=== PATIENT | female | born 1990 | race Caucasian/White ===

== ENCOUNTER 2016-11-05 06:26 | Inpatient (IN) | payer BC ==
[2016-11-05] MEDS ORDERED: LIDOCAINE 1% (PF) 10 MG/ML (30 ML SDV) SQ PRN (06:48)
[2016-11-05] MEDS ORDERED: CARBOPROST TROMETHAMINE 250 MCG/ML 1 ML AMP IM PRN (06:48)
[2016-11-05] MEDS ORDERED: METHYLERGONOVINE 0.2 MG/ML 1 ML AMP IM PRN (06:48)
[2016-11-05] MEDS ORDERED: TERBUTALINE 1 MG/ML VIAL SQ PRN (06:48)
[2016-11-05] MEDS ORDERED: OXYTOCIN 10 UNIT/ML 1 ML VIAL IM PRN (06:48)
[2016-11-05] MEDS ORDERED: OXYTOCIN 20 UNITS/1000 ML NS 1,000 ML IV SCH (07:00)
[2016-11-05] MEDS: LACTATED RINGERS 1,000 ML IV SCH ×3 (07:13→11:51)
[2016-11-05 07:25] LABS: Basophils % (A) 0 %; CH 31.5; CHCM 34.5; Eosinophils # (A) 0.2 k/uL (0-0.7); Eosinophils % (A) 1 %; HCT 41.6 % (34.0-46.0); HDW 2.35; HGB 13.9 gm/dL (11.4-16.0); Luc # (Auto) 0.19; Luc % (Auto) 2; Lymphocytes # (A) 1.8 k/uL (1.0-4.8); Lymphocytes % (A) 15 %; MCH 30.7 pg (25.0-35.0); MCHC 33.4 g/dL (31.0-37.0); MCV 91.8 fL (80.0-100.0); Mean Platelet Volume 9.1; Monocytes # (A) 0.6 k/uL (0-1.0); Monocytes % (A) 5 %; Neutrophils # (A) 9.6 k/uL (1.3-7.7); Neutrophils % (A) 78 %; RBC 4.53 m/uL (3.80-5.40); RDW 14.1 % (11.5-15.5); WBC 12.3 k/uL (3.8-10.6); WBC (Perox) 11.97
[2016-11-05 07:34] LABS: INR 0.9 (<1.2); Prothrombin Time 9.4 sec (9.0-12.0)
[2016-11-05 07:52] VITALS: BMI 28.4
[2016-11-05] MEDS ORDERED: BUTORPHANOL 1 MG/ML 1 ML VIAL IV PRN (08:34)
--- NOTE | 2016-11-05 08:39 | P.HPOB ---
History of Present Illness H&P Date: 11/05/16 Chief Complaint: 40-6/7 weeks, induction The patient is a 25-year-old 1 para 0 admitted at 40-6/7 weeks as established by last Mester. And confirmed by 8 week ultrasound. She is admitted for induction of labor with all signs reassuring. Her is, located by history of deep venous thrombosis while using control pills. As a result, she was referred to maternal medicine who placed her on Lovenox prophylaxis throughout the . The initial plan to change her to unfractionated heparin was rescinded in favor of remaining on Lovenox up and until delivery as the have lives are not so dissimilar. Given the fact that she is scheduled for induction, her last dose of Lovenox was more than 24 hours ago. She is also known to be rubella nonimmune. Group B strep status is negative. Obstetrical history: 1 para 0 with current statistics listed above. EDC of 10/31/2016 was established by last menstrual period and confirmed by an 8 week ultrasound. Laboratory workup demonstrates a blood type of A+ with a negative antibody screen. Rubella status is nonimmune. The remainder of the laboratory workup was within normal limits. One hour Glucola was normal and group B strep status is negative. Gynecologic history: Unremarkable with no history of any infections to include STDs. Review of Systems Review of systems is confined to history of present illness. Past Medical History Past Medical History: Deep Vein Thrombosis (DVT) Additional Past Medical History / Comment(s): age 19 History of Any Multi-Drug Resistant Organisms: None Reported Past Surgical History: No Surgical Hx Reported Past Anesthesia/Blood Transfusion Reactions: No Reported Reaction Past Psychological History: No Psychological Hx Reported Smoking Status: Never smoker - Past Family History Mother Family Medical History: No Reported History Medications and Allergies Home Medications Medication Instructions Recorded Confirmed Type Enoxaparin [Lovenox] 40 mg SQ DAILY 11/05/16 11/05/16 History Pedi Multivit No.25/Folic Acid 2 tab PO DAILY 11/05/16 11/05/16 History [Flintstones Multivit Chew Tab] Allergies Allergy/AdvReac Type Severity Reaction Status Date / Time No Known Allergies Allergy Verified 11/05/16 06:47 Exam - Vital Signs Vital signs: Vital Signs Temp Pulse Resp BP 11/05/16 06:46 97.0 F L 96 18 127/84 Intake and Output 11/04/16 11/05/16 11/05/16 22:59 06:59 14:59 Other: Weight 89.811 kg In general, this is a well-developed, well-nourished white female in no acute distress. Her heart has a regular rhythm and rate without murmur. Her lungs are clear to auscultation bilaterally in all melvin. Her abdomen is gravid, nondistended, has normal active bowel sounds, is soft, nontender, and without any palpable masses aside from uterine fundus. Her extremities are without any cyanosis, clubbing, or significant edema and are nontender to palpation bilaterally. Digital cervical examination demonstrates her cervix to be 3 cm dilated, approximate 70% effaced, with the vertex in presentation at -1 station. Artificial rupture of membranes is carried out demonstrating clear fluid. Results Result Diagrams: 11/05/16 07:00 Abnormal Lab Results - Last 24 Hours (Table) 11/05/16 Range/Units 07:00 WBC 12.3 H (3.8-10.6) k/uL Neutrophils # 9.6 H (1.3-7.7) k/uL Assessment and Plan (1) History of DVT (deep vein thrombosis) Status: Acute (2) Post-dates Status: Acute Plan: The patient has been admitted for Pitocin induction which has been started. She is undergone artificial rupture of membranes. She additionally has had coagulation studies checked and advance of a possible epidural for which she is a good candidate. She is also good candidate for IV pain medication. She will continue to have close maternal and surveillance and expectant management will be practiced. Following delivery, she will be restarted on Lovenox 40 mg subcutaneously for 6 weeks' .
[2016-11-05] MEDS ORDERED: SODIUM CHLORIDE 0.9% 100 ML BAG ONE (11:28)
[2016-11-05] MEDS ORDERED: BUPIVACAINE (PF) 0.25% 30 ML VIAL ONE (11:28)
[2016-11-05] MEDS ORDERED: fentaNYL (PF) 50 MCG/ML 5 ML AMP ONE (11:28)
[2016-11-05] MEDS ORDERED: Acetaminophen-Codeine 300-30mg TAB PO PRN (19:14)
[2016-11-05] MEDS ORDERED: LANOLIN CREAM 5 GM TUBE TOPICAL PRN (19:14)
[2016-11-05] MEDS ORDERED: SIMETHICONE 80 MG CHEWABLE PO PRN (19:14)
[2016-11-05] MEDS ORDERED: BENZOCAINE/MENTHOL SPRAY 1 GM/SPRAY AEROSOL TOPICAL PRN (19:14)
[2016-11-05] MEDS ORDERED: diphenhydrAMINE 50 MG CAP PO PRN (19:14)
[2016-11-05] MEDS ORDERED: diphenhydrAMINE 25 MG CAP PO PRN (19:14)
[2016-11-05] MEDS ORDERED: HYDROCORTISONE 2.5% RECTAL CREAM 30 GM TUBE RECTAL PRN (19:14)
[2016-11-05] MEDS ORDERED: ZOLPIDEM 5 MG TAB PO PRN (19:14)
[2016-11-05] MEDS ORDERED: WITCH HAZEL 1 EACH MED..PAD TOPICAL PRN (19:14)
[2016-11-05] MEDS ORDERED: ACETAMINOPHEN TAB 325 MG TAB PO PRN (19:14)
[2016-11-05] MEDS ORDERED: diphenhydrAMINE 50 MG/ML 1 ML VIAL IVP PRN ×2 (19:14)
[2016-11-05 19:18] VITALS: RESP 16
--- NOTE | 2016-11-05 19:20 | P.PROBDLV ---
Vaginal Delivery Note - . Vaginal Delivery Note: The patient is a 25-year-old 1 para 0 admitted at 40-6/7 weeks by good dating parameters. She is admitted for induction of labor with all signs reassuring. Her has been uncomplicated though she does carry a history of a previous DVT while taking a control pill. Maternal medicine consultation was sought and they recommended she be placed on Lovenox 40 mg subcutaneously daily throughout the . The initial plan to change to unfractionated heparin at 36 weeks was abandoned as the half-life of Lovenox is not significantly longer than unfractionated heparin. As result, her last dose of Lovenox was on Saturday night. She was admitted this morning where she had Pitocin augmentation started. She underwent artificial rupture of membranes demonstrating clear fluid. She had an epidural catheter placed for analgesia at the onset of the active phase of labor. She initially made fairly slow progress through the active phase and then progressed quickly to complete. She pushed over the course of approximately 1 hour and 45 minutes to a normal spontaneous vaginal delivery of a viable 8 lbs. 8 oz. baby girl with Apgars of 8 at 1 minute and 9 at 5 minutes delivered in the direct occiput anterior position. The placenta was delivered spontaneously, intact, and grossly normal with a grossly normal, centrally inserted three-vessel cord. A second-degree midline episiotomy had been cut for delivery and was noted to extended but not to the degree of a third-degree. The laceration was repaired with a single [id number] stitch across the anterior capsule of the external anal sphincter to reinforce it followed by a standard repair of episiotomy or laceration with 3-0 chromic catgut without difficulty. Estimated blood loss for the case was approximately 350 mL. There were no complications. All sponge, instrument, and needle counts were correct. Both mother and are resting comfortably in recovery. She will resume Lovenox 40 mg approximate 6-12 hours after delivery to be continued for 6 weeks' .
[2016-11-05] MEDS: SENNOSIDES-DOCUSATE SODIUM 1 EACH TAB PO SCH (20:14)
[2016-11-05] MEDS: IBUPROFEN 600 MG TAB PO PRN (21:54)
[2016-11-06] MEDS ORDERED: ENOXAPARIN 40 MG/0.4 ML SYRINGE SQ SCH (06:00)
--- NOTE | 2016-11-06 08:06 | P.DS ---
Providers Date of admission: 11/05/16 06:26 Expected date of discharge: 11/06/16 Attending physician: Dean Del Rio Primary care physician: Stated None - Discharge Diagnosis(es) (1) History of DVT (deep vein thrombosis) Current Visit: Yes Status: Acute (2) Post-dates Current Visit: Yes Status: Acute (3) Normal spontaneous vaginal delivery Current Visit: Yes Status: Acute Hospital Course: The patient is a 25-year-old 1 para 0 admitted at 40-6/7 weeks by good dating parameters. She is admitted for postdates induction of labor with all signs reassuring. Her has been complicated by a history of a deep venous thrombosis which occurred while using control pills a number of years ago. She was referred to maternal medicine who recommended Lovenox therapy for the to be continued up to the time of delivery. She stopped her Lovenox approximately 24-36 hours before the onset of her induction. She is also rubella nonimmune. On labor and delivery, she had Pitocin started and underwent artificial rupture of membranes for clear fluid. She had an epidural catheter placed and then made progress initially slowly through the active phase of labor but then quickly to complete. She pushed over the course of approximately 1 hour and 45 minutes to a normal spontaneous vaginal delivery of a viable 8 lbs. 8 oz. baby girl with Apgars of 8 at 1 minute and 9 at 5 minutes. There was a second-degree midline episiotomy cut which was extended to a larger second-degree laceration. It was repaired without difficulty. Her course was unremarkable with vital signs remaining stable and her temperature was afebrile throughout. She was deemed stable for discharge by day #1 was discharged home to follow-up in the office in 6 weeks' time routinely. Discharge instructions included calling for any significantly increased bleeding or foul-smelling lochia, significantly increased fever or abdominal pain, perineal complaints, breast complaints, or anything else that concerned her. She was additionally instructed to resume her Lovenox 40 mg subcutaneously for the next 6 weeks time. She was otherwise to abstain from anything in the vagina to include intercourse for the next 6 weeks as well. She understood all of her instructions and agrees to follow up as noted above. Discharge medications included continued vitamins as she has opted to breast-feed. She additionally was to continue Lovenox 40 mg subcutaneously on a daily basis as noted above. She was also provided with a prescription for Tylenol 3, 1-2 by mouth every 6 hours when necessary pain, #30 dispensed with no refills. She was otherwise to continue vitamins as she has opted to breast-feed. Paternal blood type is A+ and rubella status is nonimmune. She therefore was to receive the MMR vaccination prior to discharge. Procedures: #1. Pitocin induction #2. Artificial rupture of membranes #3. Epidural analgesia #4. Normal spontaneous vaginal delivery #5. Repair of perineal laceration Patient Condition at Discharge: Good Plan - Discharge Summary New Discharge Prescriptions: New Acetaminophen-Codeine 300-30mg [Tylenol #3] 2 tab PO Q6H PRN #30 tablet PRN Reason: Pain No Action Pedi Multivit No.25/Folic Acid [Flintstones Multivit Chew Tab] 2 tab PO DAILY Enoxaparin [Lovenox] 40 mg SQ DAILY Discharge Medication List Enoxaparin [Lovenox] 40 mg SQ DAILY 11/05/16 [History] Pedi Multivit No.25/Folic Acid [Flintstones Multivit Chew Tab] 2 tab PO DAILY [History] Acetaminophen-Codeine 300-30mg [Tylenol #3] 2 tab PO Q6H PRN #30 tablet [Rx] Follow up Appointment(s)/Referral(s): Dean Del Rio MD [STAFF PHYSICIAN] - 6 Weeks Discharge Disposition: HOME SELF-CARE
[2016-11-06] MEDS ORDERED: MEASLES-MUMPS-RUBELLA VACC/PF 12,500 UNIT/0.5 ML VIAL SQ ONE (08:07)
[2016-11-06] MEDS: SENNOSIDES-DOCUSATE SODIUM 1 EACH TAB PO SCH ×2 (08:09→20:10)
[2016-11-06] MEDS: Acetaminophen-Codeine 300-30mg TAB PO PRN ×2 (08:10→15:45)
[2016-11-06] MEDS: IBUPROFEN 600 MG TAB PO PRN ×2 (11:46→19:10)
[2016-11-06 17:32] VITALS: BP 115/59; PULSE 76; TEMP 97.9
== END 2016-11-06 20:00 | disposition home or self-care (01) | DRG 775 ==
LOC: 4FBP 06:26
PROVIDERS: ADMIT Obstetrics & Gynecology; ATTEND Obstetrics & Gynecology
PROC: 10907ZC Drainage of Amniotic Fluid, Therapeutic from Products of Conception, Via Natural or Artificial Opening (ICD-10-PCS; principal; 2016-11-05)
PROC: 0DQR0ZZ Repair Anal Sphincter, Open Approach (ICD-10-PCS; principal; 2016-11-05)
PROC: 00HU33Z Insertion of Infusion Device into Spinal Canal, Percutaneous Approach (ICD-10-PCS; principal; 2016-11-05)
PROC: 0W8NXZZ Division of Female Perineum, External Approach (ICD-10-PCS; principal; 2016-11-05)
PROC: 10E0XZZ Delivery of Products of Conception, External Approach (ICD-10-PCS; principal; 2016-11-05)
PROC: 3E033VJ Introduction of Other Hormone into Peripheral Vein, Percutaneous Approach (ICD-10-PCS; principal; 2016-11-05)
PROC: 0KQM0ZZ Repair Perineum Muscle, Open Approach (ICD-10-PCS; principal; 2016-11-05)
PROC: 3E0R3CZ (ICD-10-PCS; principal; 2016-11-05)
DX: O48.0 Post-term pregnancy (principal); O70.20 Third degree perineal laceration during delivery, unspecified; Z86.718 Personal history of other venous thrombosis and embolism; Z37.0 Single live birth; Z3A.40 40 weeks gestation of pregnancy; Z79.01 Long term (current) use of anticoagulants
CPT/HCPCS: 85025; 85610; 85730; 88307; 90707

== ENCOUNTER 2019-01-29 09:08 | Emergency (ER) | payer BC, OTHER ==
[2019-01-29 09:16] VITALS: BP 137/74; TEMP 98.2
[2019-01-29] MEDS ORDERED: LORazepam 1 MG TAB PO STA (09:42)
[2019-01-29 10:03] VITALS: PULSE 89; RESP 16
--- NOTE | 2019-01-29 10:32 | ED ---
Anxiety HPI - General Chief Complaint: Anxiety Stated Complaint: Anxiety Time Seen by Provider: 01/29/19 09:25 Source: patient, RN notes reviewed Mode of arrival: ambulatory - History of Present Illness Initial Comments: 28-year-old female with a past medical history of DVT Zentz for anxiety. Patient states when sister has a psychiatric disorder and stopped taking her mood stabilizer. Patient states that her sister became "crazy" and had to be admitted to the psychiatric unit. States this is causing her anxiety. States she feels like she is having a panic attack. States she was not able to sleep last night because of the anxiety. States she is here today so she can be set up with an outpatient psychiatrist. Denies any suicidal thoughts or thoughts of harming himself or anyone else.Patient has no other complaints at this time including shortness of breath, chest pain, abdominal pain, nausea or vomiting, headache, or visual changes. MD Complaint: anxiety, heart racing Onset/Timin -: days(s) - Related Data Home Medications: Home Medications Medication Instructions Recorded Confirmed Pedi Multivit No.25/Folic Acid 600 mcg PO DAILY 11/05/16 01/29/19 [Flintstones Multivit Chew Tab] Ferrous Sulfate [Feosol] 325 mg PO DAILY 01/29/19 01/29/19 Allergies/Adverse Reactions: Allergies Allergy/AdvReac Type Severity Reaction Status Date / Time No Known Allergies Allergy Verified 01/29/19 09:20 Review of Systems ROS Statement: Those systems with pertinent positive or pertinent negative responses have been documented in the HPI. ROS Other: All systems not noted in ROS Statement are negative. Past Medical History Past Medical History: Deep Vein Thrombosis (DVT) Additional Past Medical History / Comment(s): age 19 History of Any Multi-Drug Resistant Organisms: None Reported Past Surgical History: No Surgical Hx Reported Past Anesthesia/Blood Transfusion Reactions: No Reported Reaction Past Psychological History: No Psychological Hx Reported Smoking Status: Never smoker Past Alcohol Use History: Occasional Past Drug Use History: None Reported - Past Family History Mother Family Medical History: No Reported History General Exam Limitations: no limitations General appearance: alert, in no apparent distress Head exam: Present: atraumatic, normocephalic, normal inspection Eye exam: Present: normal appearance, PERRL, EOMI. Absent: scleral icterus, conjunctival injection, periorbital swelling ENT exam: Present: normal exam, mucous membranes moist Neck exam: Present: normal inspection, full ROM. Absent: tenderness, meningismus, lymphadenopathy Respiratory exam: Present: normal lung sounds bilaterally. Absent: respiratory distress, wheezes, rales, rhonchi, stridor Cardiovascular Exam: Present: regular rate, normal rhythm, normal heart sounds. Absent: systolic murmur, diastolic murmur, rubs, gallop, clicks GI/Abdominal exam: Present: soft, normal bowel sounds. Absent: distended, tenderness, guarding, rebound, rigid Neurological exam: Present: alert, oriented X3, CN II-XII intact Psychiatric exam: Present: normal affect, normal mood Course Vital Signs 01/29/19 01/29/19 09:13 10:02 Temperature 98.2 F Pulse Rate 105 H 89 Respiratory 20 16 Rate Blood Pressure 137/74 O2 Sat by Pulse 99 99 Oximetry Medical Decision Making - Medical Decision Making Patient presents for anxiety. Patient is anxious to get her sister was admitted to the psychiatric unit. Patient states she has had this before. Patient is here for outpatient referral list. Denies any suicidal thoughts. Patient was given Ativan and is significantly better. She will get a ride home. Patient was given referral list for psychiatrists and counseling. She was also given mobile crisis number. She will follow up outpatient. If she has worsening symptoms she will return here to the emergency department. - Lab Data Lab Results 01/29/19 Range/Units 09:53 Urine HCG, Qual Not Detected (Not Detectd) Disposition Clinical Impression: Acute anxiety Disposition: HOME SELF-CARE Condition: Good Instructions (If sedation given, give patient instructions): Generalized Anxiety Disorder (ED) Additional Instructions: Please follow up with referrals given to you for anxiety. If you have any worsening symptoms and return to the emergency department. Is patient prescribed a controlled substance at d/c from ED?: No Referrals: Luh Kyle MD [REFERRING] - 1-2 days Time of Disposition: 10:31
== END 2019-01-29 10:33 | disposition home or self-care (01) ==
LOC: EC 09:08
DX: F41.9 Anxiety disorder, unspecified (principal); Z86.718 Personal history of other venous thrombosis and embolism
CPT/HCPCS: 81025; 99283

== ENCOUNTER 2019-02-10 23:56 | Emergency (ER) | payer BC, OTHER ==
[2019-02-11 01:01] LABS: Basophils % (A) 1 %; Eosinophils # (A) 0.1 k/uL (0-0.7); Eosinophils % (A) 1 %; HCT 39.5 % (34.0-46.0); HGB 13.5 gm/dL (11.4-16.0); Lymphocytes # (A) 1.9 k/uL (1.0-4.8); Lymphocytes % (A) 22 %; MCH 30.2 pg (25.0-35.0); MCHC 34.1 g/dL (31.0-37.0); MCV 88.8 fL (80.0-100.0); Mean Platelet Volume 6.2; Monocytes # (A) 0.4 k/uL (0-1.0); Monocytes % (A) 5 %; Neutrophils % (A) 69 %; Platelet Count 263 k/uL (150-450); RBC 4.45 m/uL (3.80-5.40); RDW 12.7 % (11.5-15.5); WBC 8.6 k/uL (3.8-10.6)
--- NOTE | 2019-02-11 01:02 | XR ---
EXAMINATION TYPE: XR chest 2V DATE OF EXAM: 02/11/2019 COMPARISON: NONE HISTORY: Chest pain TECHNIQUE: Frontal and lateral views of the chest are obtained. FINDINGS: Heart and mediastinum are normal. Lungs are clear. Diaphragm is normal. Bony thorax appear s normal. IMPRESSION: Normal chest.
[2019-02-11 01:11] LABS: Partial Thromboplastin Time 23.8 sec (22.0-30.0); Prothrombin Time 10.7 sec (9.0-12.0)
[2019-02-11 01:13] LABS: ALT 23 U/L (9-52); AST 20 U/L (14-36); African American GFR (CKD) >90 (>60 ml/min/1.73 sqM); Albumin 4.5 g/dL (3.5-5.0); Alkaline Phosphatase 45 U/L (38-126); Anion Gap 7 mmol/L; Blood Urea Nitrogen 19 mg/dL (7-17); Calcium 9.5 mg/dL (8.4-10.2); Carbon Dioxide 25 mmol/L (22-30); Chloride 105 mmol/L (98-107); Glucose 101 mg/dL (74-99); Magnesium 1.9 mg/dL (1.6-2.3); Sodium 137 mmol/L (137-145); Total Bilirubin 0.5 mg/dL (0.2-1.3); Total Protein 7.3 g/dL (6.3-8.2)
--- NOTE | 2019-02-11 01:25 | ED ---
Arrhythmia/Palpitations HPI - General Chief Complaint: Arrhythmia/Palpitations Stated Complaint: chest pain Time Seen by Provider: 02/11/19 00:14 Source: patient Mode of arrival: ambulatory Limitations: no limitations - History of Present Illness Initial Comments: Patient is a 28-year-old female with no significant past medical history spinning to the emergency room with a chief complaint of chest pain and palpitations. Patient reports over the last several days her heart rate has been around 100 bpm at rest and over 190 bpm with light exercise. Patient reports over same. She developed intermittent chest pain that feels like an "a brick on her chest". Patient denies any episodes diaphoresis nausea or vomiting. Patient does report occasional lightheadedness but denies any dizziness or blurry vision. During the periods of palpitations Patient reports some shortness of breath but no cough. - Related Data Home Medications Medication Instructions Recorded Confirmed Pedi Multivit No.25/Folic Acid 600 mcg PO DAILY 11/05/16 01/29/19 [Flintstones Multivit Chew Tab] Ferrous Sulfate [Feosol] 325 mg PO DAILY 01/29/19 01/29/19 Allergies Allergy/AdvReac Type Severity Reaction Status Date / Time No Known Allergies Allergy Verified 02/11/19 00:03 Review of Systems ROS Statement: Those systems with pertinent positive or pertinent negative responses have been documented in the HPI. ROS Other: All systems not noted in ROS Statement are negative. Past Medical History Past Medical History: Deep Vein Thrombosis (DVT) Additional Past Medical History / Comment(s): age 19 History of Any Multi-Drug Resistant Organisms: None Reported Past Surgical History: No Surgical Hx Reported Past Anesthesia/Blood Transfusion Reactions: No Reported Reaction Past Psychological History: Anxiety Smoking Status: Never smoker Past Alcohol Use History: Occasional Past Drug Use History: None Reported - Past Family History Mother Family Medical History: No Reported History General Exam Limitations: no limitations General appearance: alert, in no apparent distress Head exam: Present: atraumatic, normocephalic, normal inspection Eye exam: Present: normal appearance, PERRL, EOMI Pupils: Present: normal accommodation ENT exam: Present: normal exam, normal oropharynx, mucous membranes moist, TM's normal bilaterally, normal external ear exam Neck exam: Present: normal inspection, full ROM Respiratory exam: Present: normal lung sounds bilaterally Cardiovascular Exam: Present: regular rate, normal rhythm, normal heart sounds Extremities exam: Present: normal inspection, full ROM Back exam: Present: normal inspection, full ROM Neurological exam: Present: alert, oriented X3 Psychiatric exam: Present: normal affect, normal mood Skin exam: Present: warm, intact, normal color Course Vital Signs 02/11/19 02/11/19 00:01 02:47 Temperature 97.9 F 98.3 F Pulse Rate 75 85 Respiratory 20 17 Rate Blood Pressure 145/96 135/90 O2 Sat by Pulse 99 98 Oximetry EKG Findings - EKG Comments: EKG Findings:: Normal sinus rhythm. Ventricular rate 77, MO interval 150, QRS duration 86, QT/QTC 382/432 Medical Decision Making - Medical Decision Making Patient is a 28-year-old female with no significant past medical history is presenting to emergency Department with chief complaint of palpitations and chest pain. Considering the patient still has chest heaviness cardiac workup was initiated. Patient has no palpitations at this time. EKG shows normal sinus rhythm with no ST changes. Chest x-ray is unremarkable. Initial troponins are negative. Rest of labs are unremarkable. I advised the patient to remain in the ED until repeat troponins are obtained. Patient states that she wants to go home and would like to be evaluated by doctor of veterinary medicine as an outpatient. Patient states that she will sign out AMA. Patient given recommendations for a doctor of veterinary medicine. Strict return parameters were thoroughly discussed with patient was understanding and agreeable. Case discussed with physician. - Lab Data Result diagrams: 02/11/19 00:51 02/11/19 00:51 Lab Results 02/11/19 02/11/19 02/11/19 Range/Units 00:51 00:51 00:51 WBC 8.6 (3.8-10.6) k/uL RBC 4.45 (3.80-5.40) m/uL Hgb 13.5 (11.4-16.0) gm/dL Hct 39.5 (34.0-46.0) % MCV 88.8 (80.0-100.0) fL MCH 30.2 (25.0-35.0) pg MCHC 34.1 (31.0-37.0) g/dL RDW 12.7 (11.5-15.5) % Plt Count 263 (150-450) k/uL Neutrophils % 69 % Lymphocytes % 22 % Monocytes % 5 % Eosinophils % 1 % Basophils % 1 % Neutrophils # 6.0 (1.3-7.7) k/uL Lymphocytes # 1.9 (1.0-4.8) k/uL Monocytes # 0.4 (0-1.0) k/uL Eosinophils # 0.1 (0-0.7) k/uL Basophils # 0.0 (0-0.2) k/uL PT 10.7 (9.0-12.0) sec INR 1.0 (<1.2) APTT 23.8 (22.0-30.0) sec Sodium 137 (137-145) mmol/L Potassium 4.0 (3.5-5.1) mmol/L Chloride 105 (98-107) mmol/L Carbon Dioxide 25 (22-30) mmol/L Anion Gap 7 mmol/L BUN 19 H (7-17) mg/dL Creatinine 0.63 (0.52-1.04) mg/dL Est GFR (CKD-EPI)AfAm >90 (>60 ml/min/1.73 sqM) Est GFR (CKD-EPI)NonAf >90 (>60 ml/min/1.73 sqM) Glucose 101 H (74-99) mg/dL Calcium 9.5 (8.4-10.2) mg/dL Magnesium 1.9 (1.6-2.3) mg/dL Total Bilirubin 0.5 (0.2-1.3) mg/dL AST 20 (14-36) U/L ALT 23 (9-52) U/L Alkaline Phosphatase 45 (38-126) U/L Troponin I (0.000-0.034) ng/mL Total Protein 7.3 (6.3-8.2) g/dL Albumin 4.5 (3.5-5.0) g/dL 02/11/19 Range/Units 00:51 WBC (3.8-10.6) k/uL RBC (3.80-5.40) m/uL Hgb (11.4-16.0) gm/dL Hct (34.0-46.0) % MCV (80.0-100.0) fL MCH (25.0-35.0) pg MCHC (31.0-37.0) g/dL RDW (11.5-15.5) % Plt Count (150-450) k/uL Neutrophils % % Lymphocytes % % Monocytes % % Eosinophils % % Basophils % % Neutrophils # (1.3-7.7) k/uL Lymphocytes # (1.0-4.8) k/uL Monocytes # (0-1.0) k/uL Eosinophils # (0-0.7) k/uL Basophils # (0-0.2) k/uL PT (9.0-12.0) sec INR (<1.2) APTT (22.0-30.0) sec Sodium (137-145) mmol/L Potassium (3.5-5.1) mmol/L Chloride (98-107) mmol/L Carbon Dioxide (22-30) mmol/L Anion Gap mmol/L BUN (7-17) mg/dL Creatinine (0.52-1.04) mg/dL Est GFR (CKD-EPI)AfAm (>60 ml/min/1.73 sqM) Est GFR (CKD-EPI)NonAf (>60 ml/min/1.73 sqM) Glucose (74-99) mg/dL Calcium (8.4-10.2) mg/dL Magnesium (1.6-2.3) mg/dL Total Bilirubin (0.2-1.3) mg/dL AST (14-36) U/L ALT (9-52) U/L Alkaline Phosphatase (38-126) U/L Troponin I <0.012 (0.000-0.034) ng/mL Total Protein (6.3-8.2) g/dL Albumin (3.5-5.0) g/dL Disposition Clinical Impression: Palpitations, Chest pain Disposition: Left Against Medical Advice Condition: Stable Instructions (If sedation given, give patient instructions): Heart Palpitations (ED) Additional Instructions: Please follow up with a doctor of veterinary medicine. Please return to emergency department symptoms worsen. Is patient prescribed a controlled substance at d/c from ED?: No Referrals: None,Stated [Primary Care Provider] - 1-2 days Rodger Medina MD [STAFF PHYSICIAN] - 1-2 days Time of Disposition: 02:41
[2019-02-11 02:48] VITALS: BP 135/90; PULSE 85; RESP 17; TEMP 98.3
== END 2019-02-11 02:51 | disposition left against medical advice (07) ==
LOC: EC 23:56
DX: R00.2 Palpitations (principal); R07.89 Other chest pain; R42 Dizziness and giddiness; R06.02 Shortness of breath; Z53.20 Procedure and treatment not carried out because of patient's decision for unspecified reasons
CPT/HCPCS: 36415; 71046; 80053; 83735; 84484; 85025; 85610; 85730; 93005; 99285

== ENCOUNTER 2022-04-05 08:50 | Emergency (ER) | payer BC, OTHER ==
[2022-04-05 08:54] VITALS: RESP 18
[2022-04-05] MEDS ORDERED: SODIUM CHLORIDE 0.9% 1,000 ML IV STA (09:04)
[2022-04-05 09:26] LABS: Basophils % (A) 1 %; Eosinophils # (A) 0.1 k/uL (0-0.7); Eosinophils % (A) 1 %; HCT 40.1 % (34.0-46.0); HGB 13.2 gm/dL (11.4-16.0); Lymphocytes # (A) 1.8 k/uL (1.0-4.8); Lymphocytes % (A) 37 %; MCH 28.5 pg (25.0-35.0); MCV 86.5 fL (80.0-100.0); Mean Platelet Volume 8.2; Monocytes # (A) 0.2 k/uL (0-1.0); Monocytes % (A) 5 %; Neutrophils # (A) 2.7 k/uL (1.3-7.7); Neutrophils % (A) 54 %; Platelet Count 202 k/uL (150-450); RBC 4.64 m/uL (3.80-5.40); RDW 13.5 % (11.5-15.5)
[2022-04-05 09:39] LABS: INR 0.9 (<1.2); Partial Thromboplastin Time 23.2 sec (22.0-30.0); Prothrombin Time 9.7 sec (9.0-12.0)
[2022-04-05 09:47] LABS: ALT 18 U/L (4-34); AST 22 U/L (14-36); African American GFR (CKD) >90 (>60 ml/min/1.73 sqM); Albumin 4.2 g/dL (3.5-5.0); Alkaline Phosphatase 49 U/L (38-126); Anion Gap 7 mmol/L; Blood Urea Nitrogen 13 mg/dL (7-17); Calcium 8.8 mg/dL (8.4-10.2); Carbon Dioxide 28 mmol/L (22-30); Chloride 104 mmol/L (98-107); Glucose 98 mg/dL (74-99); Non-African American GFR(CKD) >90 (>60 ml/min/1.73 sqM); Potassium 3.9 mmol/L (3.5-5.1); Sodium 139 mmol/L (137-145); Total Bilirubin 0.4 mg/dL (0.2-1.3); Total Protein 7.3 g/dL (6.3-8.2)
--- NOTE | 2022-04-05 11:11 | CT ---
EXAMINATION TYPE: CT chest angio for PE CT DLP: 318.9 mGycm, Automated exposure control for dose reduction was used. DATE OF EXAM: 04/05/2022 10:46 AM COMPARISON: Chest radiograph from same day. CLINICAL INDICATION:Female, 31 years old with history of Hemoptysis, shortness of breath; Hemoptysis and shortness of breath. TECHNIQUE/CONTRAST: CTA scan of the thorax is performed with IV Contrast, patient injected with 71ml mL of Isovue 370, pu lmonary embolism protocol. MIP images are created and reviewed. FINDINGS: Pulmonary Artery: There is no evidence for a central filling defect within the pulmonary vasculature to suggest acute pulmonary embolism. Limited evaluation of the segmental and subsegmental branches se condary to bolus timing. The pulmonary artery is of normal size. Lungs/Pleura: No evidence of focal consolidation, pleural effusion or pneumothorax. Airway: Large airways are patent. Heart: Heart is within normal limits for size.. Vasculature: No evidence of aortic aneurysm. Mediastinum: No gross evidence of adenopathy. Musculoskeletal: No acute osseous abnormalities Soft Tissues: Unremarkable. Lower neck: No significant findings. Upper Abdomen: No significant findings. IMPRESSION: No evidence of central pulmonary embolism. Limited evaluation of the segmental and subsegmental branc hes.
--- NOTE | 2022-04-05 11:20 | ED ---
URI HPI - General Chief Complaint: Upper Respiratory Infection Stated Complaint: coughing up blood Time Seen by Provider: 04/05/22 08:57 Source: patient, RN notes reviewed Mode of arrival: ambulatory Limitations: no limitations - History of Present Illness Initial Comments: 31-year-old female presents emergency Department chief complaint of COVID-19, coughing up blood. Patient states that she took at home test which was positive for COVID-19 6 days ago. States she started feeling better states she was coughing hard and noticed some blood in her sputum. Patient denies any pleuritic pain states that she felt slightly short of breath that has resolved. No leg pain or leg swelling. Patient does have a history DVT in which she was on control at that time. She has not had any issues her percent. Patient denies recent fever last 2 days, earlier pain no sore throat no other associated complaints - Related Data Home Medications Medication Instructions Recorded Confirmed No Known Home Medications 04/05/22 04/05/22 Allergies Allergy/AdvReac Type Severity Reaction Status Date / Time No Known Allergies Allergy Verified 04/05/22 09:23 Review of Systems ROS Statement: Those systems with pertinent positive or pertinent negative responses have been documented in the HPI. ROS Other: All systems not noted in ROS Statement are negative. Past Medical History Past Medical History: Deep Vein Thrombosis (DVT) Additional Past Medical History / Comment(s): age 19 History of Any Multi-Drug Resistant Organisms: None Reported Past Surgical History: No Surgical Hx Reported Past Anesthesia/Blood Transfusion Reactions: No Reported Reaction Past Psychological History: Anxiety Smoking Status: Never smoker Past Drug Use History: None Reported - Past Family History Mother Family Medical History: No Reported History General Exam Limitations: no limitations General appearance: alert, in no apparent distress Head exam: Present: atraumatic, normocephalic, normal inspection Eye exam: Present: normal appearance, PERRL, EOMI. Absent: scleral icterus, conjunctival injection, periorbital swelling ENT exam: Present: normal exam, normal oropharynx, mucous membranes moist Neck exam: Present: normal inspection, full ROM. Absent: tenderness, meningismus, lymphadenopathy Respiratory exam: Present: normal lung sounds bilaterally. Absent: respiratory distress, wheezes, rales, rhonchi, stridor Cardiovascular Exam: Present: normal rhythm, tachycardia, normal heart sounds. Absent: systolic murmur, diastolic murmur, rubs, gallop, clicks GI/Abdominal exam: Present: soft, normal bowel sounds. Absent: distended, tenderness, guarding, rebound, rigid Course Vital Signs 04/05/22 08:50 Temperature 98 F Pulse Rate 117 H Respiratory 18 Rate Blood Pressure 149/86 O2 Sat by Pulse 100 Oximetry Medical Decision Making - Medical Decision Making 31-year-old presented for cough, sore hemoptysis. Patient did full set of labs revealed mildly elevated d-dimer CTA was obtained of the chest interpreted by me and radiology there is no evidence of pulmonary embolism. Patient did have risk factors including prior DVT, recent COVID-19, tachycardia. Patient feels improved after IV fluids patient discharged in stable condition return parameters discussed. - Lab Data Result diagrams: 04/05/22 09:17 04/05/22 09:17 Lab Results 04/05/22 04/05/22 04/05/22 Range/Units 09:17 09:17 09:17 WBC 5.0 (3.8-10.6) k/uL RBC 4.64 (3.80-5.40) m/uL Hgb 13.2 (11.4-16.0) gm/dL Hct 40.1 (34.0-46.0) % MCV 86.5 (80.0-100.0) fL MCH 28.5 (25.0-35.0) pg MCHC 33.0 (31.0-37.0) g/dL RDW 13.5 (11.5-15.5) % Plt Count 202 (150-450) k/uL MPV 8.2 Neutrophils % 54 % Lymphocytes % 37 % Monocytes % 5 % Eosinophils % 1 % Basophils % 1 % Neutrophils # 2.7 (1.3-7.7) k/uL Lymphocytes # 1.8 (1.0-4.8) k/uL Monocytes # 0.2 (0-1.0) k/uL Eosinophils # 0.1 (0-0.7) k/uL Basophils # 0.0 (0-0.2) k/uL PT 9.7 (9.0-12.0) sec INR 0.9 (<1.2) APTT 23.2 (22.0-30.0) sec D-Dimer 0.64 H (<0.60) mg/L FEU Sodium 139 (137-145) mmol/L Potassium 3.9 (3.5-5.1) mmol/L Chloride 104 (98-107) mmol/L Carbon Dioxide 28 (22-30) mmol/L Anion Gap 7 mmol/L BUN 13 (7-17) mg/dL Creatinine 0.64 (0.52-1.04) mg/dL Est GFR (CKD-EPI)AfAm >90 (>60 ml/min/1.73 sqM) Est GFR (CKD-EPI)NonAf >90 (>60 ml/min/1.73 sqM) Glucose 98 (74-99) mg/dL Calcium 8.8 (8.4-10.2) mg/dL Total Bilirubin 0.4 (0.2-1.3) mg/dL AST 22 (14-36) U/L ALT 18 (4-34) U/L Alkaline Phosphatase 49 (38-126) U/L Total Protein 7.3 (6.3-8.2) g/dL Albumin 4.2 (3.5-5.0) g/dL HCG, Qual 04/05/22 Range/Units 09:17 WBC (3.8-10.6) k/uL RBC (3.80-5.40) m/uL Hgb (11.4-16.0) gm/dL Hct (34.0-46.0) % MCV (80.0-100.0) fL MCH (25.0-35.0) pg MCHC (31.0-37.0) g/dL RDW (11.5-15.5) % Plt Count (150-450) k/uL MPV Neutrophils % % Lymphocytes % % Monocytes % % Eosinophils % % Basophils % % Neutrophils # (1.3-7.7) k/uL Lymphocytes # (1.0-4.8) k/uL Monocytes # (0-1.0) k/uL Eosinophils # (0-0.7) k/uL Basophils # (0-0.2) k/uL PT (9.0-12.0) sec INR (<1.2) APTT (22.0-30.0) sec D-Dimer (<0.60) mg/L FEU Sodium (137-145) mmol/L Potassium (3.5-5.1) mmol/L Chloride (98-107) mmol/L Carbon Dioxide (22-30) mmol/L Anion Gap mmol/L BUN (7-17) mg/dL Creatinine (0.52-1.04) mg/dL Est GFR (CKD-EPI)AfAm (>60 ml/min/1.73 sqM) Est GFR (CKD-EPI)NonAf (>60 ml/min/1.73 sqM) Glucose (74-99) mg/dL Calcium (8.4-10.2) mg/dL Total Bilirubin (0.2-1.3) mg/dL AST (14-36) U/L ALT (4-34) U/L Alkaline Phosphatase (38-126) U/L Total Protein (6.3-8.2) g/dL Albumin (3.5-5.0) g/dL HCG, Qual Not Detected Disposition Clinical Impression: COVID-19 Disposition: HOME SELF-CARE Condition: Stable Instructions (If sedation given, give patient instructions): COVID-19 (Coronavirus Disease 2019) (ED) Additional Instructions: Please return to the Emergency Department if symptoms worsen or any other concerns. Is patient prescribed a controlled substance at d/c from ED?: No Referrals: None,Stated [Primary Care Provider] - 1-2 days Time of Disposition: 11:19
[2022-04-05 11:35] VITALS: BP 140/92; PULSE 88; TEMP 98
== END 2022-04-05 11:34 | disposition home or self-care (01) ==
LOC: EC 08:50
DX: U07.1 COVID-19 (principal); F41.9 Anxiety disorder, unspecified
CPT/HCPCS: 36415; 85379; 80053; 85025; 85610; 85730; 84703; 71275; 99284; 96360; Q9967

== ENCOUNTER → 2022-05-01 | Outpatient (CLI) | payer BC, OTHER ==
[2022-05-01 09:41] LABS: Partial Thromboplastin Time 23.3 sec (22.0-30.0); Prothrombin Time 10.1 sec (9.0-12.0)
[2022-05-01 14:45] LABS: HCT 40.9 % (37.2-46.3); MCHC 31.8 g/dL (32.0-37.0); Mean Platelet Volume 11.1 fL (9.5-12.2); NRBC Per 100 WBC 0 /100 WBCS (0.0-0.0); Platelet Count 224 X 10*3/uL (140-440); RBC 4.65 X 10*6/uL (4.10-5.20); RDW 14.5 % (11.5-14.5)
[2022-05-01 16:25] LABS: African American GFR (CKD) 112.3 (60.0-200.0); Albumin 4.9 g/dL (3.8-4.9); Albumin/Globulin Ratio 1.81 (1.60-3.17); Anion Gap 9.9 mmol/L (10.00-18.00); BUN/Creat Ratio 17.88 Ratio (12.00-20.00); Blood Urea Nitrogen 14.3 mg/dL (9.0-27.0); Calcium 9.5 mg/dL (8.7-10.3); Carbon Dioxide 25.1 mmol/L (20.0-27.5); Globulin 2.7 g/dL (1.6-3.3); Non-African American GFR(CKD) 96.9 (60.0-200.0); Potassium 4.5 mmol/L (3.5-5.5); Total Bilirubin 0.6 mg/dL (0.30-1.20); Total Protein 7.6 g/dL (6.2-8.2)
[2022-05-01 18:33] LABS: Cardiolipin Ab IgM Interp NEGATIVE (NEGATIVE); Cardiolipin IgA Antibody <2.0 U/mL; Cardiolipin IgM Antibody <1.5 U/mL
[2022-05-01 21:26] LABS: Cardiolipin Ab IgG Interp NEGATIVE (NEGATIVE)
[2022-05-02 10:09] LABS: APTT 39 Sec(s) (<43); Dilute Russell Viper Venom 38 Sec(s) (<44)
== END | disposition home or self-care (01) ==
LOC: LABWHC1 08:17
PROVIDERS: ATTEND Physician Assistant Medical
DX: Z00.00 Encounter for general adult medical examination without abnormal findings (principal); R53.83 Other fatigue
CPT/HCPCS: 36415; 80053; 82607; 82746; 85027; 85300; 85303; 85306; 85610; 85613; 85730; 86147

== ENCOUNTER 2024-10-11 19:04 | Emergency (ER) | payer BC, OTHER ==
--- NOTE | 2024-10-11 19:58 | ED ---
Abdominal Pain HPI - General Chief Complaint: Abdominal Pain Stated Complaint: Abd pain Time Seen by Provider: 10/11/24 19:54 Source: patient, RN notes reviewed Mode of arrival: ambulatory Limitations: no limitations - History of Present Illness Initial Comments: 37-year-old female presenting for abdominal pain x 2 days. Reports a constant mild lower abdominal pain over the past couple of days. States prior to arrival she was using a slip and slide with her children. States after she was got off the slip and slide she had worsening of abdominal pain. No change in bowel habits. Last bowel movement was this morning and was normal. No urinary s ymptoms, fever, nausea, vomiting. States she is currently on her menstrual period - Related Data Home Medications Medication Instructions Recorded Confirmed No Known Home Medications 04/05/22 04/05/22 Allergies Allergy/AdvReac Type Severity Reaction Status Date / Time No Known Allergies Allergy Verified 10/11/24 19:11 Review of Systems ROS Statement: Those systems with pertinent positive or pertinent negative responses have been documented in the HPI. ROS Other: All systems not noted in ROS Statement are negative. Past Medical History Past Medical History: Deep Vein Thrombosis (DVT) Additional Past Medical History / Comment(s): age 19 History of Any Multi-Drug Resistant Organisms: None Reported Past Surgical History: No Surgical Hx Reported Past Anesthesia/Blood Transfusion Reactions: No Reported Reaction Past Psychological History: No Psychological Hx Reported Smoking Status: Never smoker Past Alcohol Use History: None Reported Past Drug Use History: None Reported - Past Family History Mother Family Medical History: No Reported History General Exam Limitations: no limitations General appearance: alert, in no apparent distress Head exam: Present: atraumatic, normocephalic, normal inspection Eye exam: Present: normal appearance, PERRL, EOMI. Absent: scleral icterus, conjunctival injection, periorbital swelling GI/Abdominal exam: Present: soft, normal bowel sounds. Absent: distended, tenderness, guarding, rebound, rigid Back exam: Absent: CVA tenderness (R), CVA tenderness (L) Neurological exam: Present: alert, oriented X3 Psychiatric exam: Present: normal affect, normal mood Skin exam: Present: warm, dry, intact, normal color. Absent: rash Course Vital Signs 10/11/24 19:07 Temperature 98.6 F Pulse Rate 79 Respiratory 18 Rate Blood Pressure 125/69 O2 Sat by Pulse 99 Oximetry Medical Decision Making - Medical Decision Making Was pt. sent in by a medical professional or institution (, PEG, LICENSED CLINICAL PSYCHOLOGIST, urgent care, hospital, or correction...) When possible be specific @ -No Did you speak to anyone other than the patient for history (EMS, parent, family, police, friend...)? What history was obtained from this source @ -No Did you review nursing and triage notes (agree or disagree)? Why? @ -I reviewed and agree with nursing and triage notes Were old charts reviewed (outside hosp., previous admission, EMS record, old EKG, old radiological studies, urgent care reports/EKG's, correction records)? Report findings @ -No old charts were reviewed Differential Diagnosis (chest pain, altered mental status, abdominal pain women, abdominal pain men, vaginal bleeding, weakness, fever, dyspnea, syncope, headache, dizziness, GI bleed, back pain, seizure, CVA, palpatations, mental health, musculoskeletal)? @ -Differential Abdominal Pain Women: Appendicitis, Cholecystitis, diverticulosis, ischemic bowel, pancreatitis, hepatitis, UTI, gastroenteritis, AAA, incarcerated hernia, bowel obstruction, constipation, inflammatory bowel, hepatitis, peptic ulcer disease, splenic infarction, perforated viscus, vulvitis, ovarian torsion, PID, kidney stone, placenta abruption, this is not meant to be an all-inclusive list EKG interpreted by me (3pts min.). @ -None X-rays interpreted by me (1pt min.). @ -None done CT interpreted by me (1pt min.). @ -None done U/S interpreted by me (1pt. min.). @ -None done What testing was considered but not performed or refused? (CT, X-rays, U/S, labs)? Why? @ -None What meds were considered but not given or refused? Why? @ -None Did you discuss the management of the patient with other professionals (professionals i.e. PEG Lynn, LICENSED CLINICAL PSYCHOLOGIST, lab, RT, psych nurse, social media content specialist, civil service worker, teacher, loan review officer, telephonic case manager)? Give summary @ -No Was smoking cessation discussed for >3mins.? @ -No Was critical care preformed (if so, how long)? @ -No Were there social determinants of health that impacted care today? How? (Homelessness, low income, unemployed, alcoholism, drug addiction, transportation, low edu. Level, literacy, decrease access to med. care, group home, rehab)? @ -No Was there de-escalation of care discussed even if they declined (Discuss DNR or withdrawal of care, Hospice)? DNR status @ -No What co-morbidities impacted this encounter? (DM, HTN, Smoking, COPD, CAD, Cancer, CVA, ARF, Chemo, Hep., AIDS, mental health diagnosis, sleep apnea, morbid obesity)? @ -None Was patient admitted / discharged? Hospital course, mention meds given and route, prescriptions, significant lab abnormalities, going to OR and other pertinent info. @ -Discharge. 33-year-old female presenting for abdominal pain x 2 days that worsened after she used a slip and slide prior to arrival. Abdomen soft nonsurgical. Provided with IV fluids and Toradol. Lab work unremarkable. Urinalysis hemorrhagic as patient is on her menstrual cycle. Upon reevaluation, patient reports significant improvement of symptoms. Patient can be safely discharged home with strict return precautions and follow-up care. Case was discussed with my ED attending Dr. Hinojosa Undiagnosed new problem with uncertain prognosis? @ -No Drug Therapy requiring intensive monitoring for toxicity (Heparin, Nitro, Insulin, Cardizem)? @ -No Were any procedures done? @ -No Diagnosis/symptom? @ -Abdominal pain Acute, or Chronic, or Acute on Chronic? @ -Acute Uncomplicated (without systemic symptoms) or Complicated (systemic symptoms)? @ -Default Side effects of treatment? @ -No Exacerbation, Progression, or Severe Exacerbation? @ -No Poses a threat to life or bodily function? How? (Chest pain, [place], [place], pneumonia, PE, COPD, DKA, ARF, appy, cholecystitis, CVA, Diverticulitis, Homicidal, Suicidal, threat to staff... and all critical care pts) @ -Not at this time - Lab Data Result diagrams: 10/11/24 20:10 10/11/24 20:10 Lab Results 10/11/24 10/11/24 10/11/24 Range/Units 20:10 20:10 20:10 WBC 8.43 (4.50-10.00) 10*3/uL RBC 4.19 (4.10-5.20) 10*6/uL Hgb 12.1 (12.0-15.0) g/dL Hct 36.4 L (37.2-46.3) % MCV 86.9 (80.0-97.0) fL MCH 28.9 (27.0-32.0) pg MCHC 33.2 (32.0-37.0) g/dL Plt Count 245 (140-440) 10*3/uL MPV 9.6 (9.5-12.2) fL Immature Gran % (Auto) 0.4 % Neutrophils % 73.4 % Lymphocytes % 19.0 % Monocytes % 6.2 % Eosinophils % 0.6 % Basophils % 0.4 % Immature Gran # 0.03 (0.00-0.04) 10*3/uL Neutrophils # 6.20 (1.80-7.70) 10*3/uL Lymphocytes # 1.60 (0.90-5.00) 10*3/uL Monocytes # 0.52 (0.20-1.00) 10*3/uL Eosinophils # 0.05 (0.04-0.35) 10*3/uL Basophils # 0.03 (0.00-0.10) 10*3/uL Sodium 139 (137-145) mmol/L Potassium 4.4 (3.5-5.1) mmol/L Chloride 104 (98-107) mmol/L Carbon Dioxide 27 (22-30) mmol/L Anion Gap 8 mmol/L BUN 20 H (7-17) mg/dL Creatinine 0.71 (0.52-1.04) mg/dL Est GFR (CKD-EPI)AfAm >90 (>60 ml/min/1.73 sqM) Est GFR (CKD-EPI)NonAf >90 (>60 ml/min/1.73 sqM) Glucose 99 (74-99) mg/dL Plasma Lactic Acid [place] 0.9 (0.7-2.0) mmol/L Calcium 9.5 (8.4-10.2) mg/dL Total Bilirubin 0.6 (0.2-1.3) mg/dL AST 29 (14-36) U/L ALT 13 (4-34) U/L Alkaline Phosphatase 52 (38-126) U/L Total Protein 7.3 (6.3-8.2) g/dL Albumin 4.6 (3.5-5.0) g/dL Lipase 66 (23-300) U/L Urine Color Urine Appearance (Clear) Urine pH (5.0-8.0) Ur Specific [place] (1.001-1.035) Urine Protein (Negative) Urine Glucose (UA) (Negative) Urine Ketones (Negative) Urine Blood (Negative) Urine Nitrite (Negative) Urine Bilirubin (Negative) Urine Urobilinogen (<2.0) mg/dL Ur Leukocyte Esterase (Negative) Urine RBC (0-5) /hpf Urine WBC (0-5) /hpf Ur Squamous Epith Cells (0-4) /hpf Urine Bacteria (None) /hpf Cellular Casts (0) /lpf Hyaline Casts (0-2) /lpf Urine Mucus (None) /hpf Urine HCG, Qual (Not Detectd) 10/11/24 10/11/24 Range/Units 20:12 20:12 WBC (4.50-10.00) 10*3/uL RBC (4.10-5.20) 10*6/uL Hgb (12.0-15.0) g/dL Hct (37.2-46.3) % MCV (80.0-97.0) fL MCH (27.0-32.0) pg MCHC (32.0-37.0) g/dL Plt Count (140-440) 10*3/uL MPV (9.5-12.2) fL Immature Gran % (Auto) % Neutrophils % % Lymphocytes % % Monocytes % % Eosinophils % % Basophils % % Immature Gran # (0.00-0.04) 10*3/uL Neutrophils # (1.80-7.70) 10*3/uL Lymphocytes # (0.90-5.00) 10*3/uL Monocytes # (0.20-1.00) 10*3/uL Eosinophils # (0.04-0.35) 10*3/uL Basophils # (0.00-0.10) 10*3/uL Sodium (137-145) mmol/L Potassium (3.5-5.1) mmol/L Chloride (98-107) mmol/L Carbon Dioxide (22-30) mmol/L Anion Gap mmol/L BUN (7-17) mg/dL Creatinine (0.52-1.04) mg/dL Est GFR (CKD-EPI)AfAm (>60 ml/min/1.73 sqM) Est GFR (CKD-EPI)NonAf (>60 ml/min/1.73 sqM) Glucose (74-99) mg/dL Plasma Lactic Acid [place] (0.7-2.0) mmol/L Calcium (8.4-10.2) mg/dL Total Bilirubin (0.2-1.3) mg/dL AST (14-36) U/L ALT (4-34) U/L Alkaline Phosphatase (38-126) U/L Total Protein (6.3-8.2) g/dL Albumin (3.5-5.0) g/dL Lipase (23-300) U/L Urine Color Yellow Urine Appearance Cloudy H (Clear) Urine pH 6.5 (5.0-8.0) Ur Specific [place] 1.032 (1.001-1.035) Urine Protein 1+ H (Negative) Urine Glucose (UA) Negative (Negative) Urine Ketones 1+ H (Negative) Urine Blood Large H (Negative) Urine Nitrite Negative (Negative) Urine Bilirubin Negative (Negative) Urine Urobilinogen 3.0 (<2.0) mg/dL Ur Leukocyte Esterase Trace H (Negative) Urine RBC >182 H (0-5) /hpf Urine WBC 9 H (0-5) /hpf Ur Squamous Epith Cells 2 (0-4) /hpf Urine Bacteria Rare H (None) /hpf Cellular Casts 2 (0) /lpf Hyaline Casts 8 H (0-2) /lpf Urine Mucus Moderate H (None) /hpf Urine HCG, Qual Not Detected (Not Detectd) Disposition Clinical Impression: Abdominal pain Disposition: HOME SELF-CARE Condition: Stable Instructions (If sedation given, give patient instructions): Abdominal Pain (ED) Additional Instructions: Please return to the Emergency Department if symptoms worsen or any other concerns. Is patient prescribed a controlled substance at d/c from ED?: No Referrals: None,Stated [Primary Care Provider] - 1-2 days Time of Disposition: 21:44
[2024-10-11] MEDS: SODIUM CHLORIDE 0.9% 1,000 ML IV STA (20:09)
[2024-10-11] MEDS: KETOROLAC 15 MG/ML 1 ML VIAL IVP STA (20:10)
[2024-10-11 20:24] LABS: Basophils # (A) 0.03 10*3/uL (0.00-0.10); Basophils % (A) 0.4 %; Eosinophils # (A) 0.05 10*3/uL (0.04-0.35); Eosinophils % (A) 0.6 %; HCT 36.4 % (37.2-46.3); HGB 12.1 g/dL (12.0-15.0); Lymphocytes # (A) 1.60 10*3/uL (0.90-5.00); Lymphocytes % (A) 19.0 %; MCH 28.9 pg (27.0-32.0); MCHC 33.2 g/dL (32.0-37.0); MCV 86.9 fL (80.0-97.0); Monocytes # (A) 0.52 10*3/uL (0.20-1.00); Monocytes % (A) 6.2 %; Neutrophils # (A) 6.20 10*3/uL (1.80-7.70); Neutrophils % (A) 73.4 %; Platelet Count 245 10*3/uL (140-440); RBC 4.19 10*6/uL (4.10-5.20); RDW 14.3 % (11.5-14.5); WBC 8.43 10*3/uL (4.50-10.00)
[2024-10-11 20:49] LABS: ALT 13 U/L (4-34); AST 29 U/L (14-36); African American GFR (CKD) >90 (>60 ml/min/1.73 sqM); Albumin 4.6 g/dL (3.5-5.0); Alkaline Phosphatase 52 U/L (38-126); Anion Gap 8 mmol/L; Blood Urea Nitrogen 20 mg/dL (7-17); Calcium 9.5 mg/dL (8.4-10.2); Carbon Dioxide 27 mmol/L (22-30); Chloride 104 mmol/L (98-107); Glucose 99 mg/dL (74-99); Lipase 66 U/L (23-300); Non-African American GFR(CKD) >90 (>60 ml/min/1.73 sqM); Potassium 4.4 mmol/L (3.5-5.1); Sodium 139 mmol/L (137-145); Total Protein 7.3 g/dL (6.3-8.2)
[2024-10-11 21:04] LABS: Bacteria,Urine Rare /hpf; Bilirubin,Urine Negative (Negative); Blood,Urine Large (Negative); Cellular Casts,Urine 2 /lpf (0); Color,Urine Yellow; Glucose,Urine (UA) Negative (Negative); Hyaline Casts,Urine 8 /lpf (0-2); Ketones,Urine 1+ (Negative); Leukocyte Esterase,Urine Trace (Negative); Mucus,Urine Moderate /hpf; Nitrite,Urine Negative (Negative); PH, Urine 6.5 (5.0-8.0); Protein,Urine 1+ (Negative); RBC,Urine >182 /hpf (0-5); Specific Gravity,Urine 1.032 (1.001-1.035); Squamous Epithelial Cell,Urine 2 /hpf (0-4); Urobilinogen,Urine 3.0 mg/dL (<2.0); WBC,Urine 9 /hpf (0-5)
[2024-10-11 21:56] VITALS: BP 120/79; PULSE 88; RESP 16; TEMP 98.2
== END 2024-10-11 21:53 | disposition home or self-care (01) ==
LOC: EC 19:04
DX: R10.30 Lower abdominal pain, unspecified (principal)
CPT/HCPCS: 36415; 80053; 83605; 83690; 85025; 81001; 81025; 99284; 96374; 96361; J1885